=== PATIENT | male | born 1985 | race Caucasian/White ===

== ENCOUNTER 2025-06-09 11:16 | Outpatient (AMB) | payer OTHER, SELFPAY ==
--- NOTE | 2025-06-09 11:56 | A.OFFVIS_ITS ---
Intake Visit Reasons: cfs Allergies No Known Allergies Allergy (Verified 06/04/25 18:05) Medication List - Last Reconciled 06/09/25 by Rohit Carroll MD bupropion HCl SR 300 mg PO DAILY dextroamphetamine-amphetamine 10 mg (Adderall) 10 mg PO DAILY fludrocortisone 0.1 mg PO DAILY midodrine 10 mg PO TID nabumetone 500 mg PO BID pyridostigmine bromide 60 mg PO TID HPI Comments Details: 39 RH man with dsyautonomia causing hypotension and syncope, depression, family stress, fibromyalgia, and fatigue syndrome. He was going through tough time regarding his mood. He was trying to get an appt with a psychiatrst. He did not have adderall for a while due to insurance issues. He was taking buproprion, midodrine, fludrocortisone, and pysridostigmine. He thought meds were helping but not a lot. [facility] [place] Medical History (Updated 06/09/25 @ 12:02 by Rohit Carroll MD) GERD (gastroesophageal reflux disease) Chronic fatigue syndrome ADD (attention deficit disorder) Fibromyalgia Depression Dysautonomia Migraine Review of Systems Const Details: Constitutional:?No fever, chills, fatigue, weight loss, or night sweats. HEENT:?No headache, vision changes, hearing loss, nasal congestion, sore throat. Neurological:?c/o tiredness and fatigue Psychiatric:?c/o depression Endocrine:?No heat/cold intolerance, polydipsia, polyuria, or hair/skin changes. Hematologic/Lymphatic:?No easy bruising, bleeding, or lymphadenopathy. Integumentary (Skin):?No rash, lesions, itching, or color changes. ? Physical Exam Neuro Other: Mental Status: Alert and oriented to person, place, and time. Normal attention. Normal spontaneous speech, fluency, and comprehension. No obvious issues with mood and memory. Affect is appropriate. Cranial Nerves: CN II: Visual newberry full to confrontation, visual acuity intact. CN III, IV, : Pupils equal, round, reactive to light and accommodation. Extraocular movements are normal. CN V: Facial sensation is normal. CN VII: Facial movements symmetrical. CN VIII: Hearing intact to bedside conversation is normal. CN IX, X: Palate elevates symmetrically. CN XI: Shoulder shrug and head turn symmetrical. CN XII: Tongue midline without atrophy or fasciculations. Extrapyramidal: Full facial expressions and blinking. No rigidity. Movements are appropriate with no tremor or abnormality. Speech: Normal; no dysarthria or tremor. Assessment & Plan Assessment & Plan (1) Fibromyalgia: Comment: Tilt table testing at [facility] in May 2021: severe vasovagal reaction EEG at office in 2020: WNL [place] [facility] [place]: WNL MRI brain WO at [place] in 2020: WNL. Code(s): M79.7 - Fibromyalgia Category: Medical (2) Dysautonomia: Code(s): G90.1 - Familial dysautonomia [Nik-Day] Category: Medical (3) Orthostatic hypotension: Code(s): I95.1 - Orthostatic hypotension Category: Medical (4) Chronic fatigue syndrome: Code(s): G93.32 - Myalgic encephalomyelitis/chronic fatigue syndrome Category: Medical Plan Impression: a. Fibromyalgia b. Dysautonomia c. Depression d. Chronic fatigue syndrome Rec: a: Buproprion HC ER 150mg 2 a day b: Midodrine 10mg tid c: Fludrocortisone 0.1mg 3 days a week d: He is advised to see a psychiatrist for proper management of depression Coding Level of Care Code Est Pt Level 4 (48392) Diagnoses Fibromyalgia M79.7 Dysautonomia G90.1 Orthostatic hypotension I95.1 Chronic fatigue syndrome G93.32
--- OUTSIDE RECORDS SUMMARY | 2025-06-09 12:39 | XMS_ITS | Clinical Summary ---
Author Organization [facility] [address] Address [address] [place] [phone] Phone Care Team Providers Care Laboratory Technical Specialist Name Role Phone Ruthann Randle MD Primary Care Provider [phone] Allergies No known active allergies Medications amphetamine-dext roamphetamine (ADDERALL) 10 mg tablet daily. 09/12/2022 Active buPROPion SR (WELLBUTRIN SR) 200 mg 12 hr tablet daily. 03/13/2023 Active cholecalciferol (VITAMIN D-3) 50 mcg (2,000 unit) tablet Take 1 tablet (2,000 Units total) by mouth 1 (one) time each day. 09/07/2023 Active fludrocortisone (FLORINEF) 0.1 mg tablet Take 1 Tab by mouth three times a week. 11/10/2020 Active midodrine (PROAMATINE) 5 mg tablet Take 2 Tabs by mouth 3 times daily. 11/10/2020 Active nabumetone (RELAFEN) 500 mg tablet Take 1 tablet (500 mg total) by mouth 2 (two) times a day. 06/12/2022 Active pyRIDostigmine (MESTINON) 60 mg tablet Take 1 tablet (60 mg total) by mouth 3 (three) times a day. 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 2016 Overview (11/13/2024): Chronic lumbar back pain, MRI 09/23/2017; 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 Evaluated by [facility]- no surgery, extensive PT, physiatry for epidural injections and chiropractor (no manipulation therapy) Immunizations Name Administration Dates Next Due Influenza Quadravalent, MDCK , 0.5ml, preservative free (Flucelvax) 6mo and older 10/25/2021 Moderna SARS-CoV-2 COVID-19, mRNA, LNP-S, preservative free 05/19/2021,04/21/2021 SARS-COV-2 COVID-19 Non-US V accine, Specific Product Unknown 06/07/2021 Tdap Tetanus diptheria acell ular pertussis (Boostrix; Adacel) 7yo and older 05/14/2017 Surgical History Surgery Date Site/Laterality Comments OTHER SURGICAL HISTORY PROCEDURE: DENIES PREVIOUS SURGERY Medical History Medical History Date Comments 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 cancer Paternal Grandmother Relation Name Status Comments Father Mother Paternal Grandfather Paternal Grandmother Social History Tobacco Use Types Packs/Day Years Used Date Smoking Tobacco: Never Smokeless Tobacco: Never Tobacco Cessation:Counseling Given: Not Answered Alcohol Use Standard Drinks/Week Comments No 0 (1 standard drink = 0.6 oz pur e alcohol) Housing Instability Answer Date Recorde d Are you worried that in the next 2 months you may not have stable housing? No 02/09/2025 Food Access & Nutrition Answer Date Rec orded Do you have access to a vari ety of food including fruits and vegetables? Yes 02/09/2025 Access to Healthcare Answer Date Record ed Within the last 3 months, ho w many times did you visit the emergency department for your medical care? 0 02/09/2025 Health Literacy Answer Date Recorded How often do you need to hav e someone help you when you read instructions, pamphlets, or other written material from your doctor or pharmacy? Never 02/09/2025 Caregiver: How often do you need to have someone help you when you read instructions, pamphlets, or other written material from your doctor or pharmacy? Not on file 02/09/2025 Financial Risk Answer Date Recorded How hard is it for you to pa y for the very basics like food, housing, medical care, and air conditioning / heating? Very hard 02/09/2025 Transportation Answer Date Recorded Has the lack of transportati on kept you from meetings, work, or from getting things needed for daily living? No Has the lack of transportati on kept you from medical appointments or from getting medications? No 02/09/2025 Social Isolation Answer Date Recorded How often do you feel lonely or isolated from th ose around you? Often 02/09/2025 Food Risk Answer Date Recorded Within the past 12 months we worried whether our food would run out before we got money to buy more. Never true 02/09/2025 Within the past 12 months th e food we bought just didn't last and we didn't have money to get more. Never true 02/09/2025 Dependent Care Answer Date Recorded Do you need help finding or paying for care for your loved ones. For example, childcare center administrator or elderly care for an older adult? No 02/09/2025 Education Answer Date Recorded Do you think completing more education or training, like finishing a GED, going to college, or learning a trade, would be helpful for you? No 02/09/2025 Employment and Income Answer Date Recor ded During the last four weeks, have you been actively looking for work? No 02/09/2025 Living Situation Answer Date Recorded What is your living situation? 0 02/09/2025 Sex and Gender Information Value Date Recorded Sex Assigned at Male 12/23/2024 11:50 AM EST Legal Sex Male 2:24 PM EST Gender Identity Male 12/23/2024 11:50 AM EST Sexual Orientation Straight 12/23/2024 11 :50 AM EST Obstetrics History Last Filed Vital Signs Vital Sign Reading Time Taken Comments Blood Pressure 104/68 02/10/2025 9:42 AM EDT Pulse 76 02/10/2025 9:42 AM EDT Temperature 35.9 C (96.6 F) 02/10/2025 9:42 AM EDT Respiratory Rate 20 02/10/2025 9:42 AM EDT Oxygen Saturation - - Inhaled Oxygen Concentration - - Weight 85.7 kg (189 lb) 02/10/2025 9:42 AM EDT Height 180.3 cm (5' 11 ) 02/10/2025 9:42 AM EDT Body Mass Index 26.36 02/10/2025 9:42 AM EDT Plan of Treatment Upcoming Encounters Date Type Department Care Team (Late st Contact Info) Description 08/13/2025 9:30 AM EDT Office Visit Adult Medicine [facility] [place] [address], [place] [phone] Kashif Robb NP [address], [place] Health Maintenance Due Date Last Done Comments Hepatitis B Vaccines (1 of 3 - 19+ 3-dose series) 2002 Hepatitis C Screening 11/04/2022 COVID-19 Vaccine (2023-2 5 season) 2024 06/07/2021, 05/19/2021, 04/21/2021 Influenza Vaccine (#1) 2025 , 08/26/2020, 08/09/2018 Depression Screening 02/09/2026 02/09/2025, 09/22/2024 Social Influencers of Health Screening 02/09/2026 02/09/2025 DTaP,Tdap,and Td Vaccines (2 - Td or Tdap) 05/14/2027 05/14/2017 Cholesterol Screening (Lipid Panel) 09/22/2029 09/22/2024, 09/22/2024 HIV Screening Completed 05/21/2017 HIB Vaccines Aged Out No longer eligi ble based on patient's age to complete this topic HPV Vaccines Aged Out No longer eligi ble based on patient's age to complete this topic Hepatitis A Vaccines Aged Out No long er eligible based on patient's age to complete this topic IPV Vaccines Aged Out No longer eligi ble based on patient's age to complete this topic MMR Vaccines Aged Out No longer eligi ble based on patient's age to complete this topic Meningococcal ACWY Vaccine Aged Out N o longer eligible based on patient's age to complete this topic Meningococcal B Vaccine Aged Out No l onger eligible based on patient's age to complete this topic Pneumococcal Vaccine: Pediatrics (0 to 5 Years) and At-Risk Patients (6 to 49 Years) Aged Out No longer eligible b ased on patient's age to complete this topic RSV Immunization Patients Under 20 months Aged Out No longer eligible b ased on patient's age to complete this topic Varicella Vaccines Aged Out No longer eligible based on patient's age to complete this topic Procedures Procedure Name Priority Date/Time Associated Diagnosis Comments DEPRESSION SCREENING Routine 09/22/2024 LIPID PANEL Routine 09/22/2024 HIV SCREENING Routine 05/21/2017 from Last 3 Months or Most Recently Relevant to Health Maintenance Results * Depression Screening (09/22/2024) Pathologist [facility] Depression Screening abstracted us Historical Provider HEALTH MAINTENANCE Final Result * (ABNORMAL) Lipid panel (09/22/2024) LDL/HDL Ratio 4 0 - 4 Triglycerides 102 0 - 150 mg/dL Cholesterol 187 0 - 200 mg/dL HDL 53 >=40 mg/dL LDL Cholesterol 114(A) 0 - 100 mg/dL Blood Venous blood specimen / Unknown Historical Provider LAB BLOOD ORDERABLES Inna acosta Result * HIV Screening (05/21/2017) Pathologist [facility] HIV Screening abstracted Historical Provider HEALTH MAINTENANCE Final Result from Last 3 Months or Most Recently Relevant to Health Maintenance Insurance [facility] Care Teams Laboratory Technical Specialist Relationship Specialty Start Date End Date Ruthann Randle MD [address] [place] [phone] PCP - General Internal Medicine 09/28/21
== END 2025-06-09 12:17 | disposition home or self-care (01) ==
PROVIDERS: PCP Internal Medicine; Visit Provider Psychiatry & Neurology Neurology
DX: M79.7 Fibromyalgia (principal); G90.1 Familial dysautonomia [Riley-Day]; I95.1 Orthostatic hypotension; G93.32 Myalgic encephalomyelitis/chronic fatigue syndrome
CPT/HCPCS: 99214

== ENCOUNTER → 2025-06-09 11:16 | Outpatient (BNVA) | payer OTHER, SELFPAY | PROVIDERS: PCP Internal Medicine; Visit Provider Psychiatry & Neurology Neurology | DX: M79.7 Fibromyalgia (principal); G90.1 Familial dysautonomia [Riley-Day]; I95.1 Orthostatic hypotension; G93.32 Myalgic encephalomyelitis/chronic fatigue syndrome | CPT/HCPCS: 99212 ==